=== PATIENT | female | born 1975 | race Caucasian/White ===

== ENCOUNTER 2017-01-13 07:48 | Emergency (ER) | payer OTHER ==
[2017-01-13 07:54] VITALS: TEMP 97.9; BMI 27.4
--- NOTE | 2017-01-13 08:23 | PDOC ---
History of Present Illness - General Chief Complaint: Vaginal Bleeding Stated Complaint: VAGINAL BLEEDING (8 WEEKS REG) Time Seen by Provider: 01/13/17 08:09 - History of Present Illness Initial Comments: 01/13/17 08:22 CC: Acute onset of bright red vaginal bleeding Patient is a 42 y.o. female @ 5 weeks gestation who presents c/o bright, red vaginal bleeding. Patient states she noticed bright red vaginal bleeding this morning. Patient states she has noticed approximately 1-2 tablespoons of blood, no clots. Patient denies any abdominal cramping, fevers, nausea, vomiting. Patient also notes she had a spontaneous in 2016 at approximately 4-5 weeks of gestation. Past History - Past Medical History Allergies/Adverse Reactions: Allergies Allergy/AdvReac Type Severity Reaction Status Date / Time No Known Allergies Allergy Verified 01/13/17 07:54 Home Medications: Ambulatory Orders Multivitamin [Poly-Vitamin] 1 each PO DAILY 02/12/16 - Psycho/Social/Smoking Cessation Hx Suicidal Ideation: No Smoking History: Never smoked Information on smoking cessation initiated: No Hx Alcohol Use: No Drug/Substance Use Hx: No Substance Use Type: None Review of Systems - Review of Systems Constitutional: No: Chills, Fever, Malaise, Night Sweats HEENTM: No: Blurred Vision, Tinnitus, Hearing Loss, Throat Pain Respiratory: No: Cough, Orthopnea, Shortness of Breath, Wheezing, Hemoptysis Cardiac (ROS): No: Chest Pain, Edema, Lightheadedness, Palpitations ABD/GI: Yes: Other. No: Constipated, Diarrhea, Nausea, Vomiting, Abdominal cramping : No: Dysuria, Pain (No suprapubic pain) Musculoskeletal: No: Back Pain, Joint Pain, Muscle Weakness, Joint Stiffness Integumentary: No: Bruising, Erythema, Flushing Neurological: No: Headache, Numbness, Seizure, Tingling Psychiatric: No: Anxiety, Depression All Other Systems: Reviewed and Negative *Physical Exam - Vital Signs Last Vital Signs Temp Pulse Resp BP Pulse Ox 97.9 F 60 18 98/72 99 01/13/17 07:52 01/13/17 07:52 01/13/17 07:52 01/13/17 07:52 01/13/17 07:52 - Physical Exam General Appearance: Yes: Nourished, Appropriately Dressed HEENT: positive: EOMI, JES Neck: positive: Trachea midline, Supple Respiratory/Chest: positive: Lungs Clear, Normal Breath Sounds Cardiovascular: positive: Regular Rhythm, Regular Rate, S1, S2 Gastrointestinal/Abdominal: positive: Normal Bowel Sounds, Soft Musculoskeletal: positive: Normal Inspection Neurologic: positive: fitness plan coordinator II-XII NML intact, Fully Oriented, Alert ED Treatment Course - LABORATORY CBC & Chemistry Diagram: 01/13/17 09:00 01/13/17 09:00 Medical Decision Making - Medical Decision Making 01/13/17 13:08 Patient is a 42 y.o. female @ 5 weeks gestation c/o acute onset of painless vaginal bleeding. Differential diagnosis includes threatened vs. ectopic (less likely as patient does not c/o pain). Transvaginal U/S showed intrauterine with no detectable cardiac activity, B-HCG 9756, CBC/BMP were within normal limits. Patient was discharged with instruction to f/u with her previously scheduled cured meats supervisor appointment on Wednesday 01/17 and return to the Emergency Department should she have severe pain, fever or an increase in her vaginal bleeding. *DC/Admit/Observation/Transfer Diagnosis at time of Disposition: Threatened , Vagina bleeding - Discharge Dispostion Disposition: HOME Condition at time of disposition: Good Admit: No - Patient Instructions Printed Discharge Instructions: DI for Threatened Additional Instructions: Please return to the Emergency Department if your vaginal bleeding increases or you have a fever, feel severe pain or discomfort. Otherwise please follow up with your cured meats supervisor as scheduled on TuesdayJanuary 17. Print Language: FINNISH
[2017-01-13 09:13] LABS: URINE APPEARANCE CLEAR; URINE BILIRUBIN NEGATIVE (NEGATIVE); URINE BLOOD 1+ (NEGATIVE); URINE COLOR STRAW; URINE GLUCOSE (UA) NEGATIVE (NEGATIVE); URINE KETONE NEGATIVE (NEGATIVE); URINE LEUK ESTERASE NEGATIVE (NEGATIVE); URINE NITRITE NEGATIVE (NEGATIVE); URINE PROTEIN NEGATIVE (NEGATIVE); URINE UROBILINOGEN NEGATIVE mg/dL (0.2-1.0)
[2017-01-13 09:14] LABS: BASOPHIL 0.5 % (0-2.0); EOSINOPHIL 5.7 % (0-4.5); MCH 31.6 pg (25.7-33.7); MCHC 33.6 g/dl (32.0-36.0); MEAN CELL VOLUME 94.3 fl (80-96); MEAN PLT VOLUME 7.8 fl (7.5-11.1); NEUTROPHILS 54.6 % (42.8-82.8); PLATELET COUNT 219 K/MM3 (134-434); RDW 12.6 % (11.6-15.6)
[2017-01-13 09:16] LABS: URINE MUCUS RARE; URINE RBC 1 /hpf (0-3); URINE WBC <1 /hpf (3-5)
[2017-01-13 09:34] LABS: ANION GAP 9 (8-16); CALCIUM 8.9 mg/dL (8.5-10.1); CO2 26 mmol/L (21-32); CREATININE 0.7 mg/dL (0.55-1.02); GLUCOSE,RANDOM 76 mg/dL (74-106)
--- NOTE | 2017-01-13 10:59 | PDOC ---
Attending Attestation - Resident Resident Name: Kerline Roberson - ED Attending Attestation I have performed the following: I have examined & evaluated the patient, The case was reviewed & discussed with the resident, I agree w/resident's findings & plan, Exceptions are as noted - HPI HPI: 01/13/17 10:52 This patient is a 42 y.o. female , 5 weeks gestation who presents c/o bright , red vaginal bleeding. No clots. No abdominal cramping, fevers, nausea, vomiting. Spontaneous AB 2016 - Physicial Exam PE: 01/13/17 10:56 No lower abdominal tenderness no guarding No rebound - Medical Decision Making 01/13/17 11:05 Will do: Labs TV US Will re assess 01/14/17 09:09 Laboratory Tests 01/13/17 01/13/17 09:00 09:00 Beta HCG, Quant 9756.6 Urine Nitrite Negative Ur Leukocyte Esterase Negative Urine RBC 1 Urine WBC <1 6 weeks 1 day no cardiac activity noted Pt to be re assessed by hydrogen cell tender in 2 days Return to the ER for heavy vaginal bleeding - saturating 2 pads/hour x 2 hours
[2017-01-13 13:13] VITALS: BP 105/78; PULSE 85
== END 2017-01-13 13:11 | disposition home or self-care (01) ==
LOC: JER 07:48
DX: O20.0 Threatened abortion (principal); Z3A.01 Less than 8 weeks gestation of pregnancy
CPT/HCPCS: 36415; 76817-TC; 80048; 81003; 81015; 84702; 84703; 85025; 86850; 86900; 86901; 99281-25

== ENCOUNTER 2017-02-02 09:46 | Day surgery (SDC) | payer OTHER ==
--- NOTE | 2017-02-02 10:04 | PDOC ---
History of Present Illness <Zaid Coats - Last Filed: 02/02/17 13:48> - General History Source: Patient Exam Limitations: No Limitations - History of Present Illness Initial Comments: 02/02/17 10:53 The patient is a 42 year old female (A2), with a significant past medical history of, who presents to the emergency department complaining of vaginal bleeding for approximately 4 days. Patient reports her bleeding initially began as bright red spots during the first 2 days. However, it has since progressed to be dark red clots. Patient reports associated intermittent abdominal cramping, but denies any fever, nausea, vomiting, diarrhea, or constipation. Per records, patient presented to the ED with similar bleeding on 01/13/17, and had an US done which revealed no cardiac activity. 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 Pt is followed by her AIRCRAFT DESIGNER and has received care. Pt was not told by her OB that she had any high risks during this . Patient reports her last menstrual period was November 15, 2016. Allergies: NKDA Past Surgical History: None reported Social History: Non smoker. No ETOH or drug use. PCP: Dr. Plascencia <Camryn Sierra - Last Filed: 02/02/17 16:06> - General Chief Complaint: Vaginal Bleeding Stated Complaint: AND CURRENTLY BLEEDING Time Seen by Provider: 02/02/17 10:03 Past History - Reproductive History (#): 6 Para: 4 Spontaneous : 1 - Psycho/Social/Smoking Cessation Hx Suicidal Ideation: No Smoking History: Never smoked Have you smoked in the past 12 months: No Information on smoking cessation initiated: No Hx Alcohol Use: No Drug/Substance Use Hx: No Substance Use Type: None <Zaid Coats - Last Filed: 02/02/17 13:48> <Camryn Sierra - Last Filed: 02/02/17 16:06> - Past Medical History Allergies/Adverse Reactions: Allergies Allergy/AdvReac Type Severity Reaction Status Date / Time No Known Allergies Allergy Verified 02/02/17 09:48 Home Medications: Ambulatory Orders NK [No Known Home Medication] 02/02/17 Review of Systems - Review of Systems Able to Perform ROS?: Yes Comments:: 02/02/17 10:53 GENERAL/CONSTITUTIONAL: No fever or chills. No weakness. HEAD, EYES, EARS, NOSE AND THROAT: No change in vision. No ear pain or discharge. No sore throat. CARDIOVASCULAR: No chest pain or shortness of breath. RESPIRATORY: No cough, wheezing, or hemoptysis. GASTROINTESTINAL: Yes: +Abdominal cramping. No nausea, vomiting, diarrhea or constipation. GENITOURINARY: No dysuria, frequency, or change in urination. PELVIC: +Vaginal bleeding with clots MUSCULOSKELETAL: No joint or muscle swelling or pain. No neck or back pain. SKIN: No rash NEUROLOGIC: No headache, vertigo, loss of consciousness, or change in strength/ sensation. ENDOCRINE: No increased thirst. No abnormal weight change. HEMATOLOGIC/LYMPHATIC: No anemia, easy bleeding, or history of blood clots. ALLERGIC/IMMUNOLOGIC: No hives or skin allergy. <Camryn Sierra - Last Filed: 02/02/17 16:06> *Physical Exam - Vital Signs Last Vital Signs Temp Pulse Resp BP Pulse Ox 98.3 F 66 18 118/67 100 02/02/17 09:48 02/02/17 09:48 02/02/17 09:48 02/02/17 09:48 02/02/17 09:48 <Zaid Coats - Last Filed: 02/02/17 13:48> - Vital Signs Last Vital Signs Temp Pulse Resp BP Pulse Ox 98.3 F 66 18 118/67 100 02/02/17 09:48 02/02/17 09:48 02/02/17 09:48 02/02/17 09:48 02/02/17 09:48 - Physical Exam Comments: 02/02/17 10:54 GENERAL: Awake, alert, and fully oriented, in no acute distress HEAD: No signs of trauma EYES: PERRLA, EOMI, sclera anicteric, conjunctiva clear ENT: Auricles normal inspection, hearing grossly normal, nares patent, oropharynx clear without exudates. Moist mucosa NECK: Normal ROM, supple, no lymphadenopathy, JVD, or masses LUNGS: Breath sounds equal, clear to auscultation bilaterally. No wheezes, and no crackles HEART: Regular rate and rhythm, normal S1 and S2, no murmurs, rubs or gallops ABDOMEN: Soft, nontender, normoactive bowel sounds. No guarding, no rebound. No masses PELVIC: Defer to US. EXTREMITIES: Normal range of motion, no edema. No clubbing or cyanosis. No cords, erythema, or tenderness NEUROLOGICAL: Cranial nerves II through XII grossly intact. Normal speech, normal gait SKIN: Warm, Dry, normal turgor, no rashes or lesions noted. <Camryn Sierra - Last Filed: 02/02/17 16:06> ED Treatment Course - LABORATORY CBC & Chemistry Diagram: 02/02/17 10:49 02/02/17 10:49 <Zaid Coats - Last Filed: 02/02/17 13:48> - LABORATORY CBC & Chemistry Diagram: 02/02/17 10:49 02/02/17 10:49 - RADIOLOGY Radiograph Interpretation: 02/02/17 13:00 EXAM: Transvaginal US INTERPRETED BY: Dr. Bill REVIEWED BY: Dr. Coats IMPRESSION: A single intrauterine gestation is noted with a crown-rump length of 0.4 cm corresponding to an approximate gestational age of 6 weeks 1 day. No embryonic cardiac activity is seen. In in comparison to a previous ultrasound study of 01/22/2017 interval development of diminished echogenicity is seen within the embryonic pole probably representing focal degeneration. Development of linear and curvilinear soft tissue debris is noted within the gestational sac. No free intraperitoneal fluid is seen. 1 cm right ovarian follicle is noted. The left ovary appears unremarkable. <Camryn Sierra - Last Filed: 02/02/17 16:06> Medical Decision Making - Medical Decision Making 02/02/17 12:[address] Guido at 12:50. <Camryn Sierra - Last Filed: 02/02/17 16:06> *DC/Admit/Observation/Transfer - Discharge Dispostion Admit: Yes - Attestations Physician Attestion: 02/02/17 10:04 I, Dr. Zaid Coats, attest that this document has been prepared under my direction and personally reviewed by me in its entirety. I further attest, that it accurately reflects all work, treatment, procedures and medical decision -making performed by me. <Zaid Coats - Last Filed: 02/02/17 13:48> - Attestations Scribe Attestion: 02/02/17 10:54 Documentation prepared by Camryn Sierra, acting as medical planner for Zaid Coats DO. <Camryn Sierra - Last Filed: 02/02/17 16:06> Diagnosis at time of Disposition: Inevitable , Intrauterine - Discharge Dispostion Condition at time of disposition: Unchanged/Unknown - Referrals
[2017-02-02 11:24] LABS: INR 1.12 (0.82-1.09); PROTHROMBIN TIME (PATIENT) 12.4 SEC (9.98-11.88)
[2017-02-02 11:26] LABS: ALBUMIN 3.7 g/dl (3.4-5.0); ANION GAP 5 (8-16); BILIRUBIN,TOTAL 0.4 mg/dL (0.2-1.0); CO2 26 mmol/L (21-32); CREATININE 0.6 mg/dL (0.55-1.02); GLUCOSE,RANDOM 88 mg/dL (74-106); SGOT/AST 13 U/L (15-37); SGPT/ALT 24 U/L (12-78); TOT PROT 7.3 g/dl (6.4-8.2)
[2017-02-02 11:34] LABS: BASOPHIL 0.7 % (0-2.0); EOSINOPHIL 10.3 % (0-4.5); MCH 31.3 pg (25.7-33.7); MCHC 33.4 g/dl (32.0-36.0); MEAN PLT VOLUME 7.7 fl (7.5-11.1); NEUTROPHILS 47.9 % (42.8-82.8); PLATELET COUNT 229 K/MM3 (134-434); RDW 12.9 % (11.6-15.6); WHITE BLOOD COUNT 6.4 K/mm3 (4.0-10.0)
[2017-02-02 11:41] LABS: ALK PHOS 55 U/L (45-117)
[2017-02-02 12:08] LABS: URINE APPEARANCE SLCLOUDY; URINE BILIRUBIN NEGATIVE (NEGATIVE); URINE BLOOD 3+ (NEGATIVE); URINE COLOR YELLOW; URINE GLUCOSE (UA) NEGATIVE (NEGATIVE); URINE KETONE NEGATIVE (NEGATIVE); URINE LEUK ESTERASE NEGATIVE (NEGATIVE); URINE NITRITE NEGATIVE (NEGATIVE); URINE UROBILINOGEN NEGATIVE mg/dL (0.2-1.0)
[2017-02-02 12:09] LABS: URINE PROTEIN 1+ (NEGATIVE)
[2017-02-02 12:19] LABS: URINE MUCUS RARE; URINE RBC 442 /hpf (0-3)
--- NOTE | 2017-02-02 14:18 | HP ---
Past Medical History - Primary Care Physician PCP:: Alma Guido - Admission Chief Complaint: 42 yrsd ,LMP 11/15/16 10 weks gestation diagnozed missed ab with bleding, passing blood clot , is admitted for dilatation suction currettage History of Present Illness: h/o care at , [facility], 2 visits ' h/o bleeding since 01/13/17, seen in ER , bhcg was 9756.6 , sono was done 01/22/17 documented report 8.1 weeks iup, no heart motion , embryonoc demise diagnosed Bleeding on & off since then more since 01/29/17, Today(02/02/17) c/o cramps , she returned to ER repeat bhcg 4396.4, Repeat sono 6,1 weeks with embryonic demise History Source: Patient Limitations to Obtaining History: No Limitations - Past Medical History LIFE SUPPORT TECHNICIAN: No: CVA, Migraine, Seizure Cardiovascular: No: HTN Gastrointestinal: No: Gastritis, GERD Renal/: No: UTI ...: 6 ...Para: 4 ...Term: 4 (4 1991, 1993, 1995, 2005) ...Spon : 1 (2015 12 weeks gestation ) ...LMP: 11/15/16 ... Weeks Gestation by Dates: 10 Heme/Onc: No: Anemia Infectious Disease: No: STD's Psych: No: Addictions, Anxiety, Bipolar, Depression - Past Surgical History Past Surgical History: Yes: None Hx Myomectomy: No Hx Transabdominal Cerclage: No - Smoking History Smoking history: Never smoked Have you smoked in the past 12 months: No - Alcohol/Substance Use Hx Alcohol Use: No History of Substance Use: reports: None Home Medications - Allergies Allergies/Adverse Reactions: Allergies Allergy/AdvReac Type Severity Reaction Status Date / Time No Known Allergies Allergy Verified 02/02/17 09:48 - Home Medications Home Medications: Ambulatory Orders NK [No Known Home Medication] 02/02/17 Physical Exam - Maternity Vital Signs: Vital Signs Temperature 98.3 F 02/02/17 09:48 Pulse Rate 66 02/02/17 09:48 Respiratory Rate 18 02/02/17 09:48 Blood Pressure 118/67 02/02/17 09:48 O2 Sat by Pulse Oximetry (%) 100 08/09/17 09:48 Constitutional: Yes: Well Nourished Eyes: Yes: WNL HENT: Yes: WNL, Normocephalic, Thrush Cardiovascular: Yes: WNL, Regular Rate and Rhythm Lungs: Clear to auscultation Breast(s): Yes: WNL. No: Mass - Abdominal Exam/OB Fundal Height: 8 (ut rv 8 weeks size, os close, adnexa nozzleman ) - Vaginal Exam/OB Vaginal Bleediing: Yes, Fresh Blood, Old Blood Speculum Exam: Yes Dilatation (cm): 0 Effacement (%): 0 - Physical Exam Extremities: Yes: WNL Edema: No Integumentary: Yes: WNL Deep Tendon Reflex Grade: Normal +2 ...Motor Strength: WNL Psychiatric: Yes: WNL, Alert, Oriented - Labs Lab Results: CBC, BMP 02/02/17 10:49 02/02/17 10:49 Laboratory Tests 02/02/17 02/02/17 10:49 10:49 INR 1.12 AST 13 L ALT 24 Beta HCG, Quant 4396.4 Laboratory Tests 02/02/17 10:29 Blood Type A POSITIVE Antibody Screen Negative Problem List - Problems (1) Missed Code(s): O02.1 - MISSED (2) 10 weeks gestation of Code(s): Z3A.10 - 10 WEEKS GESTATION OF Assessment/Plan 42 yrs , 10 weeks by dates & 6 weeks by sono , dropping hcg titers, embryonic demise diagnosed, bleeding plan Dllatation Suction Currettage
[2017-02-02] MEDS ORDERED: OXYTOCIN 20 UNITS in 0.9% NS 1,000 ML IV SCH (14:45)
[2017-02-02 15:39] VITALS: BMI 27.4
--- NOTE | 2017-02-02 16:34 | OP ---
Operative Note - Note: Operative Date: 02/02/17 Pre-Operative Diagnosis: Missed ( 10 weeks) Operation: suction currettage Findings: ut RV 8 weeks , os open , adnexa novelty twister operator 9# curved canula was used uterine contents aspirated & currettage done Surgeon: Alma Guido Anesthesiologist/AFTER SCHOOL CAREGIVER: Sheeba Araujo Anesthesia: General Specimens Removed: uterine contents Estimated Blood Loss (mls): 10 Fluid Volume Replaced (mls): 500 (N Saline + 20 Iu Pitocin ) Operative Report Dictated: Yes
[2017-02-02] MEDS ORDERED: ACETAMINOPHEN 325 MG TABLET (FP) PO PRN (16:35)
[2017-02-02] MEDS ORDERED: IBUPROFEN 400 MG TABLET (FP) PO PRN (16:35)
[2017-02-02] MEDS ORDERED: oxyCODONE HCL 5 MG TABLET PO PRN ×2 (16:40)
[2017-02-02] MEDS ORDERED: ONDANSETRON 4 MG/2 ML VIAL IVPUSH PRN (16:40)
[2017-02-02] MEDS ORDERED: LACTATED RINGERS SOLUTION 1,000 ML IV SCH (16:45)
[2017-02-02 17:04] VITALS: TEMP 98.7
[2017-02-02 19:44] VITALS: BP 110/62; PULSE 50
--- NOTE | 2017-02-03 08:28 | OP ---
DATE OF OPERATION: 02/02/2017 PREOPERATIVE DIAGNOSIS: Missed , 10 weeks' gestation. POSTOPERATIVE DIAGNOSIS: Missed , 10 weeks' gestation. OPERATION: Suction curettage. ANESTHESIA: General. ANESTHESIOLOGIST: [place] CRNA INDICATION FOR PROCEDURE: This is a 42-year-old, 6, para 4-0-1-4 with 10 weeks' gestation, has been bleeding since January 13, has on-and-off bleeding, but hCG dropping down from 9756 on January 13 to today, on February 02, is 4700, and sonogram shows 6.1 weeks' gestation with absent heart, embryonic demise. DESCRIPTION OF PROCEDURE: Patient is taken to the operating room table. General anesthesia was given. Lithotomy position was given. Pubis, perineum, and vagina were painted with Betadine and then draped in usual manner. Time out was done. Pelvic examination was done. Uterus was retroverted, 8 weeks' size. Cervix was anterior. Adnexa were not palpable. A weighted speculum was put. Anterior lip of the cervix was held with a single-tooth tenaculum. Uterocervical length was 10 cm. Cervix was already dilated. A blood clot was seen at the cervical os, and then , a number 9 suction cannula was introduced into the uterine cavity, and suction was done. Then, suction followed by curettage was done until normal contents were obtained. Estimated blood loss was 10 mL. Patient tolerated the procedure well. All instruments were removed. Bleeding was controlled, and patient was transferred to the recovery room in stable condition. Her blood type is A positive. Luisana [id number] MTDD
--- NOTE | 2017-02-04 17:12 | PATH ---
Surgical Pathology Report Patient Name: TRENTON MARIEE [facility]. Rec. #: [id number] /Age/Gender: 1975 (Age: 42) / F Account: [id number] Location: AMBULATORY SURG Taken: 02/02/2017 Received: 02/03/2017 Reported: 02/04/2017 Physicians: Alma Guido M.D. Specimen(s) Received CONTENTS OF UTERUS Clinical History Intrauterine Final Diagnosis UTERINE CONTENTS, EVACUATION: CHORIONIC VILLI CONSISTENT WITH PRODUCTS OF CONCEPTION, AND PORTIONS OF DECIDUA. Electronically Signed Servando Granda M.D. Gross Description Received in formalin labeled "contents of uterus," is a 10.5 x 7.8 x 0.8 cm aggregate of ramos soft tissue fragments. Villous tissue is identified. No somatic tissue is identified. A software sales representative portion is submitted in one cassette. /02/03/201702/03/2017
== END 2017-02-02 18:15 | disposition home or self-care (01) ==
LOC: JER 09:46 → JASUSAT 13:49
PROVIDERS: ATTEND Obstetrics & Gynecology
PROC: 10D17ZZ Extraction of Products of Conception, Retained, Via Natural or Artificial Opening (ICD-10-PCS; principal; 2017-02-02 15:30)
DX: O02.1 Missed abortion (principal); Z3A.10 10 weeks gestation of pregnancy
CPT/HCPCS: 36415; 76817-TC; 80053; 81003; 81015; 84702; 85025; 85610; 86850; 86900; 86901; 87086; 87186; 88305-TC; 94760; 99282-25

== ENCOUNTER 2017-12-07 08:00 | Inpatient (IN) | payer OTHER ==
[2017-12-07] MEDS ORDERED: AMPICILLIN - 2 GM in SODIUM CHLORIDE 100 ML IVPB ONE (08:30)
[2017-12-07] MEDS ORDERED: AMPICILLIN SODIUM 2 GM VIAL ONE (08:37)
[2017-12-07 09:14] VITALS: BMI 31.1
[2017-12-07 09:38] LABS: BASO % 0.2 % (0-2.0); EOS % 1.6 % (0-4.5); HEMOGLOBIN 11.9 GM/dL (10.7-15.3); LYMPH % 25.9 % (8-40); MCH 31.6 pg (25.7-33.7); MCHC 33.9 g/dl (32.0-36.0); MEAN CELL VOLUME 93.4 fl (80-96); MEAN PLT VOLUME 9.2 fl (7.5-11.1); NEUT % 65.3 % (42.8-82.8); PLATELET COUNT 192 K/MM3 (134-434); RBC 3.75 M/mm3 (3.60-5.2); RDW 13.9 % (11.6-15.6); WHITE BLOOD COUNT 6.3 K/mm3 (4.0-10.0)
[2017-12-07 09:50] LABS: INR 0.93 (0.82-1.09); PROTHROMBIN TIME (PATIENT) 10.5 SEC (9.7-13.0)
[2017-12-07 09:53] LABS: ACTIVATED PTT 27.5 SECONDS (26.9-34.4)
[2017-12-07] MEDS ORDERED: DEXTROSE 5%-LACTATED RINGERS 1,000 ML IV SCH ×2 (10:00→15:30)
[2017-12-07 10:01] LABS: ANION GAP 9 (8-16); BLOOD UREA NITROGEN 6 mg/dL (7-18); CHLORIDE 107 mmol/L (98-107); CO2 24 mmol/L (21-32); CREATININE 0.7 mg/dL (0.55-1.02); GLUCOSE,RANDOM 79 mg/dL (74-106); POTASSIUM 4.1 mmol/L (3.5-5.1); SODIUM 140 mmol/L (136-145)
[2017-12-07 10:38] LABS: CALCIUM 8.7 mg/dL (8.5-10.1)
[2017-12-07] MEDS: AMPICILLIN - 1 GM in SODIUM CHLORIDE 100 ML IVPB SCH ×3 (12:30→20:30)
--- NOTE | 2017-12-07 15:25 | HP ---
Past Medical History - Admission Chief Complaint: Leakage of fluid History of Present Illness: 42 yo @ 37 weeks gestation, EDC 12/27/17, presents to L&D c/o spontaneous rupture of membrane. She denies any contractions pain. Upon admission, there was gross pooling and cervix was 1cm dilated. History Source: Patient Limitations to Obtaining History: No Limitations - Past Medical History ...: 7 ...Para: 4 ...Term: 4 ...: 0 ...Spon : 2 ...Induced : 0 ...Multiple Gestation: 0 ...LMP: 05/02/17 ... Weeks Gestation by Dates: 37.1 ...EDC by Dates: 12/27/17 ...EDC by Sono: 12/27/17 - Past Surgical History Past Surgical History: Yes: None Hx Myomectomy: No Hx Transabdominal Cerclage: No - Smoking History Smoking history: Never smoked Have you smoked in the past 12 months: No - Alcohol/Substance Use Hx Alcohol Use: No History of Substance Use: reports: None - Social History History of Recent Travel: No Home Medications - Allergies Allergies/Adverse Reactions: Allergies Allergy/AdvReac Type Severity Reaction Status Date / Time No Known Allergies Allergy Verified 02/02/17 09:48 Family Disease History - Family Disease History Family History: Unremarkable Review of Systems - Review of Systems Constitutional: reports: No Symptoms Eyes: reports: No Symptoms HENT: reports: No Symptoms Neck: reports: No Symptoms Cardiovascular: reports: No Symptoms Respiratory: reports: No Symptoms Gastrointestinal: reports: No Symptoms Genitourinary: reports: Other (Leakage of fluid) Musculoskeletal: reports: No Symptoms Integumentary: reports: No Symptoms Neurological: reports: No Symptoms Psychiatric: reports: No Symptoms Pain Intensity: 2 Physical Exam - Maternity Vital Signs: Vital Signs Temperature 97.8 F 12/07/17 13:58 Pulse Rate 63 12/07/17 13:58 Respiratory Rate 20 12/07/17 13:58 Blood Pressure 129/69 12/07/17 13:58 O2 Sat by Pulse Oximetry (%) Constitutional: Yes: Well Nourished Eyes: Yes: Conjunctiva Clear HENT: Yes: Atraumatic Neck: Yes: Supple Cardiovascular: Yes: Regular Rate and Rhythm Lungs: Clear to auscultation - Abdominal Exam/OB Number of Fetuses: Single Presentation: Vertex Contractions: No - Vaginal Exam/OB Vaginal Bleediing: No Dilatation (cm): 1 Effacement (%): 60 Amniotic Membrane Status: Ruptured Presentation: Vertex/Position Station: -2 - Physical Exam Musculoskeletal: Yes: WNL Extremities: Yes: WNL ...Motor Strength: WNL Psychiatric: Yes: Alert, Oriented - Labs Lab Results: CBC, BMP 12/07/17 09:10 12/07/17 09:10 Problem List - Problems (1) Spontaneous rupture of amniotic membranes Code(s): [id number] - Assessment/Plan Spontaneous rupture of membrane Admit to L&D Cervidil induction Re-evaluate in 12 hrs or before if indicated
[2017-12-07] MEDS ORDERED: DINOPROSTONE 10 MG VAGINAL SUPPOSITORY VG ONE (15:30)
[2017-12-07] MEDS ORDERED: AMPICILLIN SODIUM 1 GM VIAL ONE (20:41)
[2017-12-08] MEDS ORDERED: AMPICILLIN SODIUM 1 GM VIAL ONE (00:12)
[2017-12-08] MEDS: AMPICILLIN - 1 GM in SODIUM CHLORIDE 100 ML IVPB SCH (00:30)
[2017-12-08] MEDS ORDERED: OXYTOCIN 20 UNITS in 0.9% NS 20 UNIT/1,000 ML INFUS.BAG IV ONE ×2 (02:40→05:14)
[2017-12-08] MEDS ORDERED: LIDOCAINE HCL 1% PRESERVATIVE FREE - 30ML VIAL ONE (02:40)
[2017-12-08] MEDS ORDERED: ACETAMINOPHEN 325 MG TABLET (FP) ONE (05:17)
[2017-12-08] MEDS ORDERED: IBUPROFEN 600 MG TABLET (FP) PO ONE (05:17)
[2017-12-08] MEDS ORDERED: WITCH HAZEL 50% (TUCKS) 40 PAD/JAR PAD TP PRN (09:04)
[2017-12-08] MEDS ORDERED: BENZOCAINE 20% 57 GM BOTTLE TP PRN (09:04)
[2017-12-08] MEDS ORDERED: BISACODYL 10 MG SUPP.RECT RC PRN (09:04)
[2017-12-08] MEDS ORDERED: METHYLERGONOVINE MALEATE 0.2 MG/1 ML AMP IM PRN (09:04)
[2017-12-08] MEDS ORDERED: BENZOCAINE 28 GM HEMORRHOIDAL OINTMENT TP PRN (09:04)
[2017-12-08] MEDS ORDERED: OXYTOCIN 20 UNITS in 0.9% NS 20 UNIT/1,000 ML INFUS.BAG IV SCH (09:15)
--- NOTE | 2017-12-08 09:40 | PN ---
Delivery - Delivery Type of Anesthesia: None Episiotomy/Laceration: None EBL (cc): 200 Delivery, Single - Stages of Labor Date of Delivery: 12/08/17 Time of Delivery: 02:46 Date Placenta Delivered: 12/08/17 Placenta: Yes: Spontaneous - Condition of Infant Rounding Machine Operator/Vice President Payment Present: No Weight: 6 lb 14 oz Position: Left, OA - [place] Feeding Plan Initial Plan: Elected not to breastfeed exclusively throughout hospitalization Remarks - Remarks Remarks: uncomplicated from CORNELIA position across intact perineum anterior and posterior shoulders delivered without difficulty mouth and nose bulb suctioned cord clamped and cut 3vc noted placenta deliverrd spontaneously baby stable, to well baby nursery 200cc blood loss sponge count correct after delivery mom in stable condition +
[2017-12-08] MEDS ORDERED: DIPHTH,PERTUSS(ACELL),TET 0.5 ML DISP.SYRIN IM ONE (13:15)
[2017-12-08] MEDS: ACETAMINOPHEN 325 MG TABLET (FP) PO PRN (14:43)
[2017-12-08] MEDS: IBUPROFEN 600 MG TABLET (FP) PO PRN (14:44)
[2017-12-09] MEDS: ACETAMINOPHEN 325 MG TABLET (FP) PO PRN ×2 (02:08→14:45)
[2017-12-09] MEDS: IBUPROFEN 600 MG TABLET (FP) PO PRN ×2 (02:09→14:44)
[2017-12-09 07:06] LABS: BASO % 0.3 % (0-2.0); EOS % 1.8 % (0-4.5); HEMATOCRIT 31.4 % (32.4-45.2); HEMOGLOBIN 10.7 GM/dL (10.7-15.3); LYMPH % 32.9 % (8-40); MCH 31.9 pg (25.7-33.7); MEAN PLT VOLUME 9.1 fl (7.5-11.1); MONO % 5.9 % (3.8-10.2); NEUT % 59.1 % (42.8-82.8); PLATELET COUNT 171 K/MM3 (134-434); RBC 3.34 M/mm3 (3.60-5.2); RDW 13.8 % (11.6-15.6); WHITE BLOOD COUNT 10.4 K/mm3 (4.0-10.0)
--- NOTE | 2017-12-09 21:57 | PN ---
Post Progress Note - Subjective Subjective: 42 yo status post vaginal delivery seen and evaluated. Doing well Post Day: 1 Type of Delivery: Vital Signs: Vital Signs Temperature 98.2 F 12/09/17 13:09 Pulse Rate 52 L 12/09/17 13:09 Respiratory Rate 18 12/09/17 13:09 Blood Pressure 100/57 12/09/17 13:09 O2 Sat by Pulse Oximetry (%) Breast Exam: Yes: Soft Uterus: Yes: Fundus Firm Abdomen/GI: Yes: Abdomen soft, Tolerating PO Lochia: Yes: Rubra Lochia, amount: Moderate Extremities: Yes: Calves non-tender Perineum: Yes: Intact Activity: Ambulating - Labs Labs: CBC WBC 10.4 K/mm3 (4.0-10.0) H D 12/09/17 06:50 RBC 3.34 M/mm3 (3.60-5.2) L 12/09/17 06:50 Hgb 10.7 GM/dL (10.7-15.3) D 12/09/17 06:50 Hct 31.4 % (32.4-45.2) L 12/09/17 06:50 MCV 94.0 fl (80-96) 12/09/17 06:50 MCH 31.9 pg (25.7-33.7) 12/09/17 06:50 MCHC 34.0 g/dl (32.0-36.0) 12/09/17 06:50 RDW 13.8 % (11.6-15.6) 12/09/17 06:50 Plt Count 171 K/MM3 (134-434) 12/09/17 06:50 MPV 9.1 fl (7.5-11.1) 12/09/17 06:50 Absolute Neuts (auto) 6.1 # 12/09/17 06:50 Neutrophils % 59.1 % (42.8-82.8) 12/09/17 06:50 Lymphocytes % 32.9 % (8-40) D 12/09/17 06:50 Monocytes % 5.9 % (3.8-10.2) 12/09/17 06:50 Eosinophils % 1.8 % (0-4.5) 12/09/17 06:50 Basophils % 0.3 % (0-2.0) 12/09/17 06:50 Nucleated RBC % 0 % (0-0) 12/09/17 06:50 Problem List - Problems (1) Spontaneous rupture of amniotic membranes Code(s): IOL5921 - (2) Status post normal vaginal delivery Code(s): CYV9595 - Assessment/Plan Status post vaginal delivery Stable Continue routine post op care
[2017-12-09] MEDS ORDERED: SENNOSIDES/DOCUSATE COMBO (SENNA PLUS) TABLET (UD) PO PRN (22:00)
--- NOTE | 2017-12-10 05:19 | DS ---
Physical Exam-STEP FINISHER Vital Signs: Vital Signs Temperature 97.9 F 12/09/17 22:00 Pulse Rate 46 L 12/09/17 22:00 Respiratory Rate 18 12/09/17 22:00 Blood Pressure 109/68 12/09/17 22:00 O2 Sat by Pulse Oximetry (%) Constitutional: Yes: Well Nourished Eyes: Yes: Conjunctiva Clear HENT: Yes: Atraumatic Neck: Yes: Supple Cardiovascular: Yes: Regular Rate and Rhythm Respiratory: Yes: Regular Gastrointestinal: Yes: Normal Bowel Sounds External Genitalia: Yes: Normal Vaginal Exam: Yes: Normal Cervix: Yes: Normal ....Post : Yes: Uterus firm, Moderate lochia serosa Breast(s): Yes: WNL Musculoskeletal: Yes: WNL Extremities: Yes: WNL Neurological: Yes: Alert, Oriented ...Motor Strength: WNL Psychiatric: Yes: Alert, Oriented Labs: CBC, BMP 12/09/17 06:50 12/07/17 09:10 Delivery - Delivery Type of Anesthesia: None Episiotomy/Laceration: None EBL (cc): 200 Delivery, Single - Stages of Labor Date of Delivery: 12/08/17 Time of Delivery: 02:46 Placenta: Yes: Spontaneous - Condition of Board Lining Machine Operator/Wire Puller Present: No Weight: 6 lb 14 oz Position: Left, OA - [place] Feeding Plan Initial Plan: Elected not to breastfeed exclusively throughout hospitalization Discharge Summary Reason For Visit: LABOR ADMISSION Current Active Problems Spontaneous rupture of amniotic membranes (Acute) Status post normal vaginal delivery (Acute) Procedures: Principal: Normal spontaneous vaginal delivery Hospital Course: Routine care Condition: Good - Instructions Diet, Activity, Other Instructions: Regular diet No douching, no sexual intercourse x 6 weeks F/U in clinic in 6 weeks Disposition: HOME
[2017-12-10 08:17] VITALS: BP 109/74; PULSE 52; TEMP 98
== END 2017-12-10 12:35 | disposition home or self-care (01) | DRG 560 ==
LOC: JLDR 08:00 → J3W 12-08 13:20
PROVIDERS: ADMIT Obstetrics & Gynecology; ATTEND Obstetrics & Gynecology
PROC: 10E0XZZ Delivery of Products of Conception, External Approach (ICD-10-PCS; principal; 2017-12-08)
DX: O80 Encounter for full-term uncomplicated delivery (principal); Z3A.37 37 weeks gestation of pregnancy; Z37.0 Single live birth
CPT/HCPCS: 36415; 80048; 85025; 85610; 85730; 86593; 86850; 86900; 86901; 90715